=== PATIENT | male | born 1995 | race Caucasian/White ===

== ENCOUNTER 2017-01-17 22:11 | Emergency (ER) | payer OTHER ==
[~2017-01-17] VITALS: Ht 188 cm; Wt 88.6 kg
[2017-01-17 22:15] VITALS: BP 136/91; TEMP 98.6
[2017-01-17 23:25] VITALS: PULSE 79
== END 2017-01-17 23:26 | disposition home or self-care (01) ==
LOC: COL.ER 22:11
DX: S01.01XA Laceration without foreign body of scalp, initial encounter (principal); W50.0XXA Accidental hit or strike by another person, initial encounter; Y93.67 Activity, basketball; Y92.310 Basketball court as the place of occurrence of the external cause